=== PATIENT | male | born 1960 | race Caucasian/White ===

== ENCOUNTER 2022-02-12 08:19 | Emergency (ER) | payer BC ==
[2022-02-12 09:37] VITALS: BP 143/92; PULSE 48
== END 2022-02-12 09:00 | disposition home or self-care (01) ==
LOC: VM.ED 08:19
DX: S05.8X2A Other injuries of left eye and orbit, initial encounter (principal); I48.91 Unspecified atrial fibrillation; E78.00 Pure hypercholesterolemia, unspecified; I10 Essential (primary) hypertension; E66.9 Obesity, unspecified; Z68.32 Body mass index [BMI] 32.0-32.9, adult; Z79.82 Long term (current) use of aspirin; Z79.899 Other long term (current) drug therapy; W22.09XA Striking against other stationary object, initial encounter
CPT/HCPCS: 99283

== ENCOUNTER 2022-02-14 06:37 | Day surgery (SDC) | payer BC ==
[2022-02-14] MEDS: Lactated Ringers 1,000 ML IV SCH (06:59)
[2022-02-14] MEDS ORDERED: Propofol 200 MG/20 ML SDV ONE ×2 (07:45→08:48)
[2022-02-14] MEDS ORDERED: fentaNYL 100 MCG/2 ML SDV ONE (07:46)
[2022-02-14 09:31] VITALS: BP 121/80; PULSE 49
== END 2022-02-14 10:40 | disposition home or self-care (01) ==
LOC: VM.SDS 06:37
PROVIDERS: ATTEND Student in an Organized Health Care Education/Training Program
DX: Z12.11 Encounter for screening for malignant neoplasm of colon (principal); D12.0 Benign neoplasm of cecum; D12.8 Benign neoplasm of rectum; D12.3 Benign neoplasm of transverse colon; I48.91 Unspecified atrial fibrillation; I10 Essential (primary) hypertension; R23.2 Flushing; E66.9 Obesity, unspecified; G47.33 Obstructive sleep apnea (adult) (pediatric); Z68.39 Body mass index [BMI] 39.0-39.9, adult; Z79.899 Other long term (current) drug therapy; Z79.82 Long term (current) use of aspirin
CPT/HCPCS: 00811; 45380; 45385; J2704; J3010; J7120